=== PATIENT | male | born 2005 | race African-American/Black ===

== ENCOUNTER 2025-02-18 11:57 | Emergency (ER) | payer MEDICAID ==
[~2025-02-18] VITALS: Ht 185.4 cm; Wt 100.0 kg
[2025-02-18 12:06] VITALS: O2SAT 100
[2025-02-18 13:03] LABS: BASOPHILS % 0.6 % (0.0-2.0); EOSINOPHILS % 0.1 % (0.0-5.0); HEMATOCRIT. 45.8 % (42.0-52.0); HEMOGLOBIN. 15.3 g/dL (14.0-18.0); LYMPHOCYTES % 14.7 % (20.0-50.0); MEAN PLATELET VOLUME 9.0 fl (7.4-10.4); MONOCYTES % 3.7 % (2.0-8.0); NEUTROPHILS % 80.9 % (40.0-76.0); PLATELET 195 x1000/uL (130-400); RED BLOOD CELL COUNT 5.26 mill/uL (4.7-6.1); RED CELL DISTRIBUTION WIDTH 13.3 % (11.6-14.6)
[2025-02-18] MEDS: ONDANSETRON HCL 4MG/2ML INJ IV ONE (13:05)
[2025-02-18] MEDS: SODIUM CHLORIDE 0.9% 1,000 ML IV ONE ×2 (13:05→14:40)
[2025-02-18 13:16] LABS: INR 1.0
[2025-02-18 13:20] LABS: CREATININE 1.4 mg/dL (0.6-1.3); UREA NITROGEN BLOOD 16 mg/dL (9-23)
[2025-02-18 13:22] LABS: ASPARTATE AMINOTRANSFERASE 70 IU/L (<34); BILIRUBIN DIRECT 0.5 mg/dL (<=3.0); BILIRUBIN TOTAL 1.5 mg/dL (0.1-1.0); PROTEIN TOTAL 7.3 g/dL (6.0-8.3)
[2025-02-18 14:14] LABS: CLARITY URINE CLEAR (CLEAR); COLOR URINE YELLOW (YELLOW); GLUCOSE URINE 3+ (NEGATIVE); KETONES URINE 2+ (NEGATIVE); OCCULT BLOOD URINE 2+ (NEGATIVE); PH URINE 5.0 (4.5-8.0); PROTEIN URINE TRACE (NEGATIVE); SPECIFIC GRAVITY URINE 1.032 (1.005-1.030)
[2025-02-18 14:18] LABS: LEUKOCYTE ESTERASE URINE NEGATIVE (NEGATIVE); NITRITE URINE NEGATIVE (NEGATIVE); UROBILINOGEN URINE 0.2 E.U./dL (0.2-1.0)
[2025-02-18 14:20] LABS: BG BASE EXCESS -3.8 mmol/L (-2.0-3.0); BG CARBOXYHEMOGLOBIN 2.1 % (0.5-1.5); BG DEOXYHEMOGLOBIN 5.9 % (0.0-5.0); BG FRACTION INSPIRED OXYGEN 21; BG HCO3 ACT 19.7 mmol/L (21.0-28.0); BG METHEMOGLOBIN 0.3 % (0.5-1.5); BG OXYGEN SATURATION 94.0 % (94.0-98.0); BG OXYHEMOGLOBIN 91.7 % (94.0-98.0); BG PCO2 32.2 mmHg (35.0-48.0); BG PH 7.405 (7.350-7.450); BG PO2 68.4 mmHg (83.0-108.0); BG SAMPLE SITE RIGHT BRACHIAL; BG TOTAL HEMOGLOBIN 15.7 g/dL (13.5-17.5); BG VENT MODE ROOM AIR
[2025-02-18] MEDS: INSULIN REGULAR (HUMULIN R) 1000UNITS/10ML VIAL IV ONE (14:41)
[2025-02-18 14:47] LABS: WBC URINE 0-2 /hpf (0-2)
[2025-02-18 14:48] LABS: BACTERIA URINE TRACE; SQUAMOUS EPITHELIAL CELL URINE NONE SEEN /lpf (RARE/1+)
[2025-02-18 14:49] LABS: RBC URINE NONE SEEN /hpf (0-2)
[2025-02-18 15:48] LABS: PHOSPHORUS 2.4 mg/dL (2.5-4.9)
[2025-02-18 17:45] VITALS: BP 116/65; PULSE 80; RESP 15; TEMP 36.7; O2SAT 100
== END 2025-02-18 18:04 | disposition home or self-care (01) ==
LOC: ER 11:57
DX: E10.65 Type 1 diabetes mellitus with hyperglycemia (principal); Z98.890 Other specified postprocedural states
CPT/HCPCS: 80076; 80048; 81003; 82010; 82962; 83735; 83930; 84100; 85025; 85610; 36415; 82805; 82375; 96361; 96374; 96375; 99284; 36600; J1815; J2405; J7030; Z7610 ×2; A4606